=== PATIENT | male | born 1985 | race Caucasian/White ===

== ENCOUNTER 2023-06-11 07:33 | Day surgery (SDC) | payer BC ==
[2023-06-08 10:21] VITALS: BMI 24.3
[2023-06-11] MEDS ORDERED: BUPIVACAINE HCL/PF 0.25% (2.5MG/ML) 10 ML VIAL ONE (08:30)
[2023-06-11] MEDS ORDERED: EPINEPHrine 1:1,000 1,000 MCG/ML ML ONE (08:30)
[2023-06-11] MEDS ORDERED: PROPOFOL 20 ML ONE (09:00)
[2023-06-11] MEDS ORDERED: MIDAZOLAM HCL 2 MG/2 ML SINGLE DOSE VIAL ONE (09:01)
[2023-06-11] MEDS ORDERED: DEXAMETHASONE SOD PHOSPHATE 4 MG/1 ML VIAL ONE (09:29)
[2023-06-11] MEDS ORDERED: ceFAZolin SODIUM 1 GM VIAL ONE (09:29)
[2023-06-11] MEDS ORDERED: ONDANSETRON 4 MG/2 ML VIAL ONE (09:29)
[2023-06-11] MEDS ORDERED: KETOROLAC TROMETHAMINE 30 MG/1 ML VIAL ONE (09:29)
[2023-06-11] MEDS ORDERED: BUPIVACAINE HCL/PF 0.25% (2.5MG/ML) 10 ML VIAL IJ ONE (09:53)
[2023-06-11] MEDS ORDERED: ONDANSETRON 4 MG/2 ML VIAL IVPUSH PRN (10:05)
[2023-06-11] MEDS ORDERED: oxyCODONE HCL 5 MG TABLET PO PRN (10:05)
[2023-06-11 11:32] VITALS: PULSE 48; RESP 20; TEMP 97.3
[2023-06-11 12:38] VITALS: BP 115/72
== END 2023-06-11 12:20 | disposition home or self-care (01) ==
LOC: FASU 07:33
PROVIDERS: ATTEND Orthopaedic Surgery Sports Medicine
PROC: 0SBC4ZZ Excision of Right Knee Joint, Percutaneous Endoscopic Approach (ICD-10-PCS; principal; 2023-06-11 09:32)
DX: S83.241A Other tear of medial meniscus, current injury, right knee, initial encounter (principal); X58.XXXA Exposure to other specified factors, initial encounter; Y92.9 Unspecified place or not applicable; Y93.9 Activity, unspecified
CPT/HCPCS: 94760